=== PATIENT | male | born 1995 | race Caucasian/White ===

== ENCOUNTER 2019-08-04 19:57 | Emergency (ER) | payer OTHER ==
--- NOTE | 2019-08-04 21:51 | ED ---
Lower Extremity - HPI Summary HPI Summary: 24 year old female presents with right leg swelling for the past day. He states he rolled his ankle yesterday. He notes increasing swelling to right calf. He states that he had ankle pain that has since resolved. He states he developed a rash today. No fevers or chills. No past medical history of blood clots. No fam hx of blood clots. [facility] - History of Current Complaint Chief Complaint: EDExtremityLower Stated Complaint: SWOLLEN LEG PER PT Time Seen by Provider: 08/04/19 20:44 Pain Intensity: 4 - Allergies/Home Medications Allergies/Adverse Reactions: Allergies Allergy/AdvReac Type Severity Reaction Status Date / Time No Known Allergies Allergy Verified 08/04/19 20:06 Home Medications: Home Medications NK [No Home Medications Reported] 08/04/19 [History Confirmed 08/04/19] PMH/Surg Hx/FS Hx/Imm Hx Endocrine/Hematology History: Denies: Hx Anticoagulant Therapy Respiratory History: Denies: Hx Asthma Infectious Disease History: No Infectious Disease History: Denies: Traveled Outside the [place] in Last 30 Days - Family History Known Family History: Positive: Non-Contributory - Social History Alcohol Use: None Substance Use Type: Reports: None Smoking Status (MU): Light Every Day Tobacco Smoker Review of Systems Negative: Fever Negative: Chest Pain Negative: Shortness Of Breath Positive: Edema - right leg All Other Systems Reviewed And Are Negative: Yes Physical Exam Triage Information Reviewed: Yes Vital Signs On Initial Exam: Initial Vitals Temp Pulse Resp BP Pulse Ox 99.8 F 110 16 142/85 100 08/04/19 20:00 08/04/19 20:00 08/04/19 20:00 08/04/19 20:00 08/04/19 20:00 Vital Signs Reviewed: Yes Appearance: Positive: Well-Appearing Skin: Positive: Warm, Dry, Other - erythema to right leg Head/Face: Positive: Normal Head/Face Inspection Eyes: Positive: Normal, Conjunctiva Clear ENT: Positive: Pharynx normal Respiratory/Lung Sounds: Positive: Clear to Auscultation, Breath Sounds Present Cardiovascular: Positive: Normal, RRR Musculoskeletal: Positive: Strength/ROM Intact - right ankle, Edema Right - leg , Other - good pulses, nontender right ankle Neurological: Positive: Normal Psychiatric: Positive: Normal Diagnostics - Vital Signs Vital Signs Temp Pulse Resp BP Pulse Ox 08/04/19 20:00 99.8 F 110 16 142/85 100 - Laboratory Lab Statement: Any lab studies that have been ordered have been reviewed, and results considered in the medical decision making process. - Radiology ankle Radiology Interpretation Completed By: ED Physician Summary of Radiographic Findings: no fracture - Ultrasound No standard instances Ultrasound Interpretation Completed By: Radiologist Summary of Ultrasound Findings: IMPRESSION: No acute findings. No evidence of deep vein thrombosis. Lower Extremity Course/Dx - Course Course Of Treatment: 24 year old female presents with right leg swelling for the past day. He states he rolled his ankle yesterday. He notes increasing swelling to right calf. He states that he had ankle pain that has since resolved. He states he developed a rash today. No fevers or chills. No past medical history of blood clots. No fam hx of blood clots. [facility] On exam edema noted to the right leg. Neurovascular intact. Full range of motion ankle. Erythema noted to right calf. Ultrasound shows no DVT. Will treat as cellulitis with keflex with warmth to the area. patient understand and agrees with plan. - Diagnoses Differential Diagnosis/HQI/PQRI: Positive: Cellulitis, DVT, Sprain Provider Diagnoses: Calf pain, Cellulitis of right leg Discharge ED - Sign-Out/Discharge Documenting (check all that apply): Patient Departure Patient Received Moderate/Deep Sedation with Procedure: No - Discharge Plan Condition: Good Disposition: HOME Patient Education Materials: Cellulitis (ED) Referrals: Claudia PETTY,Bob White [Primary Care Provider] - Additional Instructions: elevate, ice take keflex 500mg tid x 10 days Follow up with nurse in two days for wound check Return to ED if develop any fevers or any new or worsening symptoms - Billing Disposition and Condition Condition: GOOD Disposition: Home
[2019-08-04] MEDS ORDERED: Cephalexin CAP* 500 MG PO ONE (22:03)
[2019-08-04 22:25] VITALS: BP 108/87
== END 2019-08-04 22:24 | disposition home or self-care (01) ==
LOC: ED 19:57
DX: L03.115 Cellulitis of right lower limb (principal); F17.200 Nicotine dependence, unspecified, uncomplicated
CPT/HCPCS: 99282; A9270-GY